=== PATIENT | female | born 1950 | race Caucasian/White ===

== ENCOUNTER → 2020-04-08 | Outpatient (CLI) | payer MEDICARE, OTHER ==
[~2020-04-08] MED LIST: ALBU2.5V8 INH; AMLO10TA8 PO; ASPI-630 PO; ATEN50TA PO; ATOR10TA60 PO; CYAN10002 IJ; CYAN50008 PO; FLUT9.9S NS; GABA600T7 PO; MELO15TA23 PO; OMEP40CA45 PO; UBID200C7 PO; VITA400C37 PO
[2020-04-08 09:28] LABS: BASO % 1 % (0-3); EOS # 0.2 x10^3/uL (0.0-0.7); EOS % 2 % (0-3); HEMATOCRIT 43.1 % (36.0-47.0); HEMOGLOBIN 14.6 g/dL (12.0-15.5); LYMPH # 2.3 x10^3/uL (1.0-4.8); LYMPH % 30 % (24-48); MEAN CORPUSCULAR HEMOGLOBIN 31 pg (25-35); MEAN CORPUSCULAR HGB CONC 34 g/dL (31-37); MEAN CORPUSCULAR VOLUME 91 fL (79-100); MONO # 0.8 x10^3/uL (0.0-1.1); MONO % 11 % (0-9); NEUT # 4.2 x10^3/uL (1.8-7.7); NEUT % 56 % (31-73); PLATELET COUNT 182 x10^3/uL (140-400); RED BLOOD COUNT 4.76 x10^6/uL (3.50-5.40); RED CELL DISTRIBUTION WIDTH 12.9 % (11.5-14.5); WHITE BLOOD COUNT 7.6 x10^3/uL (4.0-11.0)
[2020-04-08 09:43] LABS: PROTHROMBIN TIME PATIENT 13.1 SEC (11.7-14.0)
[2020-04-08 09:47] LABS: ALBUMIN 3.9 g/dL (3.4-5.0); C-REACTIVE PROTEIN 0.5 mg/L (0-3.3); CALCIUM 9.1 mg/dL (8.5-10.1); CREATININE 0.9 mg/dL (0.6-1.0); GFR 62.5; POTASSIUM 4.4 mmol/L (3.5-5.1)
--- NOTE | 2020-04-08 13:21 | EKG ---
[facility] [address] [place] [address] Test Date: 2020-04-08 Test Time: 12:38:28 Pat Name: SUE SIMMONS Department: Room: Gender: F Acid Leveler: NICOLAS : 1950 Requested By: MALCOLM MARLEY Order Number: [id number] Reading MD: Sebastian Colón MD Measurements Intervals [place] Rate: 60 P: 0 WA: 178 QRS: -9 QRSD: 96 T: 21 QT: 424 QTc: 424 Interpretive Statements SINUS RHYTHM Electronically Signed On 04-09-2020 8:36:25 CDT by Sebastian Colón MD
--- NOTE | 2020-04-08 17:19 | RAD ---
EXAM: Chest, 2 views. HISTORY: Asthma. Preoperative evaluation. COMPARISON: None. FINDINGS: 2 views of the chest are obtained. There is no infiltrate, pleural effusion or pneumothorax. The heart is normal in size. IMPRESSION: No acute pulmonary finding. Electronically signed by: Colleen Schultz MD (04/08/2020 5:16 PM) [id number]
== END | disposition home or self-care (01) ==
LOC: SURGPAT 13:09
PROVIDERS: ATTEND Orthopaedic Surgery
DX: Z01.812 Encounter for preprocedural laboratory examination (principal); M17.0 Bilateral primary osteoarthritis of knee; Z96.652 Presence of left artificial knee joint
CPT/HCPCS: 36415; 71046; 80048; 82040; 82306; 83036; 85025; 85610; 85730; 86140; 87641; 93005

== ENCOUNTER → 2020-04-26 | Outpatient (CLI) | payer MEDICARE, OTHER ==
[~2020-04-26] MED LIST changes: +AMLO-187 PO; -AMLO10TA8 PO
== END ==
LOC: LAB 13:28
PROVIDERS: ATTEND Orthopaedic Surgery
DX: Z01.812 Encounter for preprocedural laboratory examination (principal); Z20.828 Contact with and (suspected) exposure to other viral communicable diseases; M19.90 Unspecified osteoarthritis, unspecified site
CPT/HCPCS: U0003-CS